=== PATIENT | male | born 2000 | race Caucasian/White ===

== ENCOUNTER 2019-02-11 01:54 | Emergency (ER) | payer MEDICAID ==
[~2019-02-11] VITALS: Ht 149.9 cm; Wt 35.0 kg
[2019-02-11 01:56] VITALS: BP 129/77
--- NOTE | 2019-02-11 02:12 | NUR ---
erp at bedside to eval.
--- NOTE | 2019-02-11 02:23 | NUR ---
PT WITH MILD TEMP. ERP AWARE. UA TO BE COLLECTED--MOTHER REQUESTING BENADRYL BE GIVEN FIRST TO HELP CALM. ERP AWARE AND TO PLACE ORDERS. MOTHER AWARE OF POC. CALL LIGHT IN REACH.
[2019-02-11] MEDS ORDERED: ACETAMINOPHEN 650 MG/20.3 ML UDC PO ONE (02:30)
[2019-02-11] MEDS ORDERED: DIPHENHYDRAMINE 12.5MG/5ML, 10ML UDC PO ONE (02:30)
--- NOTE | 2019-02-11 02:40 | NUR ---
PT IN XRAY
--- NOTE | 2019-02-11 02:50 | NUR ---
ASSIST RN: BACK FROM X RAY. AWAITING RESULT.
[2019-02-11] MEDS ORDERED: DIPHENHYDRAMINE 12.5MG/5ML, 10ML UDC ONE (02:53)
[2019-02-11] MEDS ORDERED: ACETAMINOPHEN 650 MG/20.3 ML UDC ONE (02:53)
--- NOTE | 2019-02-11 03:00 | NUR ---
PT MEDICATED PER MAR.
--- NOTE | 2019-02-11 03:28 | NUR ---
LABS AND UA COLLECTED AND SENT.
[2019-02-11 03:38] LABS: BASOPHILS % (AUTO) 0 % (0-1); EOSINOPHILS % (AUTO) 0 % (1-7); LYMPHOCYTES # (AUTO) 0.37 x10^3/uL (1-6.1); LYMPHOCYTES % (AUTO) 4 % (22-44); MD NO; MEAN CORPUSCULAR HEMOGLOBIN 28.1 pg (27.5-34.5); MEAN CORPUSCULAR HGB CONC 32.5 g/dL (33.2-36.2); MEAN CORPUSCULAR VOLUME 86.5 fL (81-97); MEAN PLATELET VOLUME 9.4 fL (7.4-10.4); MONOCYTES # (AUTO) 0.67 x10^3/uL (0-1.4); MONOCYTES % (AUTO) 7 % (2-9); NEUTROPHILS % (AUTO) 89 % (42-75); PLATELET COUNT 167 x10^3/uL (130-400); RED BLOOD COUNT 5.35 x10^6/uL (4.38-5.82); RED CELL DISTRIBUTION WIDTH 14.5 % (9.4-14.8)
[2019-02-11 03:40] LABS: CULTURE INDICATED? YES; MICROSCOPIC INDICATED
[2019-02-11 03:42] LABS: ALANINE AMINOTRANSFERASE 21 U/L (12-78); ALBUMIN 3.6 g/dL (3.4-5.0); ANION GAP 8 mmol/L (5-15); CALCIUM 8.8 mg/dL (8.5-10.1); CHLORIDE 108 mmol/L (98-107); CREATININE 1.04 mg/dL (0.7-1.3)
[2019-02-11 03:44] LABS: ALKALINE PHOSPHATASE 92 U/L (45-117); BILIRUBIN,TOTAL 0.3 mg/dL (0.2-1.0); TOTAL PROTEIN 6.9 g/dL (6.4-8.2)
== END 2019-02-11 04:27 | disposition home or self-care (01) ==
LOC: ED 02:39
DX: R50.9 Fever, unspecified (principal); R11.2 Nausea with vomiting, unspecified; R19.7 Diarrhea, unspecified
CPT/HCPCS: 36415; 74022; 80053; 81001; 85025; 87086; 99284